=== PATIENT | male | born 1970 | race Caucasian/White ===

== ENCOUNTER 2021-03-05 04:56 | Emergency (ER) | payer SELFPAY ==
[~2021-03-05] VITALS: Ht 172.7 cm; Wt 72.6 kg
--- NOTE | 2021-03-05 05:14 | NUR ---
Patient arrived on foot to the ER requesting to see the doctor. Patient refuses to discuss with nurses what his chief complaint is. Patient refuses to allow nursing staff to touch him. Patient is quite dirty and disheveled. Patient mumbles incoherently to himself. Patient does not appear to be in any distress nor appear to have any SOB. VS stable.
--- NOTE | 2021-03-05 05:21 | NUR ---
Dr Dietz into assess the patient. Patient states he will only speak with the doctor.
--- NOTE | 2021-03-05 05:32 | NUR ---
Full medical clearance workup has been ordered by Dr. Dietz. The patient expressed displeasure at this and refused to have blood drawn, claiming he would like to go home and is no longer suicidal. Dr. Dietz notified of this.
--- NOTE | 2021-03-05 05:51 | NUR ---
Dr. Dietz cleared the patient with assessments done thus far. Patient was discharged from the ER in stable condition. Patient was provided with homeless packet and information on resources available to him. Patient refused the packet. Patient offered transportation to a location of his chosing, however he refused this as well. Patient asked for food and we provided a sandwitch and drink for him, however he left wihout taking these items as well.
[2021-03-05 05:54] VITALS: BP 156/87
== END 2021-03-05 05:50 | disposition home or self-care (01) ==
LOC: ER 05:03
DX: F32.9 Major depressive disorder, single episode, unspecified (principal); Z59.0 Homelessness
CPT/HCPCS: A4663